=== PATIENT | male | born 1975 | race Caucasian/White ===

== ENCOUNTER 2016-08-04 17:28 | Emergency (ER) | payer OTHER ==
[~2016-08-04 17:28] MED LIST: CELEXA20 PO; [UNRECOGNIZED DRUG - OTHER]
[2016-08-04 19:57] LABS: ASCORBIC ACID (UR NOT ORDER) NEG (NEG); BILIRUBIN, URINE NEGATIVE (NEG); ER URINALYSIS TAT 0 Hrs 12 Mins; KETONE, URINE NEGATIVE (NEG); LEUKOCYTE ESTERASE(NOT OR NEG (NEG); NITRITE (URINE) NEG (NEG); WBC (NOT ORDERED) (RFLEX) < 1 (0-5)
== END 2016-08-04 20:53 | disposition left against medical advice (07) ==
LOC: ER 17:28
PROVIDERS: Physician Assistant
PROC: 09C3XZZ Extirpation of Matter from Right External Auditory Canal, External Approach (ICD-10-PCS; principal; 2016-08-04)
DX: T16.1XXA Foreign body in right ear, initial encounter (principal); F31.9 Bipolar disorder, unspecified; F41.9 Anxiety disorder, unspecified; F17.200 Nicotine dependence, unspecified, uncomplicated; Z85.528 Personal history of other malignant neoplasm of kidney; W45.8XXA Other foreign body or object entering through skin, initial encounter
CPT/HCPCS: 81001; 99284

== ENCOUNTER 2016-10-01 17:59 | Emergency (ER) | payer OTHER ==
[2016-10-01 18:48] LABS: BASOPHILS 0.2 %; BASOPHILS ABSOLUTE 0.02 10/3/uL (0.0-0.16); EOSINOPHILS ABSOLUTE 0.18 10/3/uL (0.0-0.53); ER CBC TAT 0 Hrs 16 Mins; HEMOGLOBIN 16.3 g/dL (13.6-17.8); IMMATURE GRANULOCYTES 0.3 %; IMMATURE GRANULOCYTES ABSOLUTE 0.03 10/3/uL (0.0-0.11); LYMPHOCYTES ABSOLUTE 2.89 10/3/uL (0.67-4.30); MEAN CORPUS HGB CONC 34.7 g/dL (32.0-36.0); MEAN CORPUSCULAR HEMOGLOB 31.5 pg (26.0-34.0); MEAN CORPUSCULAR VOLUME 90.9 fL (80-100); MEAN PLATELET VOLUME 10.5 fL (9.2-13.0); MONOCYTES 6.1 %; MONOCYTES ABSOLUTE 0.55 10/3/uL (0.21-1.20); NEUTROPHILS 59.4 %; NEUTROPHILS ABSOLUTE 5.35 10/3/uL (2.02-8.40); PLATELET COUNT 219 10/3/uL (150-400); RED CELL COUNT 5.17 10/6/uL (4.7-6.1)
[2016-10-01 18:51] LABS: MANUAL DIFF NO %
[2016-10-01 18:56] LABS: PARTIAL THROMBO TIME 28.6 SEC (22.5-37.2); PROTIME (NOT ORD) 13.3 SEC (12.0-14.5)
[2016-10-01 19:03] LABS: BUN (BLOOD UREA NITROGEN) 13 MG/DL (6-23); CALCIUM, SERUM 9.3 MG/DL (8.5-10.4); CHLORIDE, SERUM 102 MMOL/L (96-112); CO2 (CARBON DIOXIDE) 26 MMOL/L (24-34); CREATININE 0.94 MG/DL (0.70-1.30); GFR AFRICAN AMERICAN 118 ML/MIN (>=60); GFR NON AFRICAN AMERICAN 102 ML/MIN (>=60); GLUCOSE, SERUM 90 MG/DL (60-99); SODIUM, SERUM 136 MMOL/L (135-148); TROPONIN I <0.02 NG/ML (<0.05)
[2016-10-01 19:05] LABS: CHEST PAIN PROFILE TAT 0 Hrs 30 Mins
== END 2016-10-01 18:32 | disposition left against medical advice (07) ==
LOC: ER 17:59
PROVIDERS: Emergency Medicine
DX: R04.2 Hemoptysis (principal); Z53.21 Procedure and treatment not carried out due to patient leaving prior to being seen by health care provider
CPT/HCPCS: 71020; 80048; 83735; 84484; 85025; 85610; 85730; 93005

== ENCOUNTER 2016-10-18 21:54 | Emergency (ER) | payer OTHER | END 2016-10-18 21:55 | disposition left against medical advice (07) | LOC: ER 21:54 | DX: G89.18 Other acute postprocedural pain (principal); N50.819 Testicular pain, unspecified; N50.89 Other specified disorders of the male genital organs; Z53.21 Procedure and treatment not carried out due to patient leaving prior to being seen by health care provider; Z88.5 Allergy status to narcotic agent; Z88.8 Allergy status to other drugs, medicaments and biological substances | CPT/HCPCS: 80053; 81001; 83690; 85025; 93005 ==

== ENCOUNTER 2016-10-19 07:46 | Emergency (ER) | payer OTHER | END 2016-10-19 08:46 | disposition home or self-care (01) | LOC: ER 07:46 | DX: G89.18 Other acute postprocedural pain (principal); N50.82 Scrotal pain; F17.200 Nicotine dependence, unspecified, uncomplicated; Z85.528 Personal history of other malignant neoplasm of kidney; Z88.5 Allergy status to narcotic agent; Z88.6 Allergy status to analgesic agent; Z88.8 Allergy status to other drugs, medicaments and biological substances; Z79.899 Other long term (current) drug therapy | CPT/HCPCS: 99284; A9270-GY ==